=== PATIENT | male | born 1970 | race Caucasian/White ===

== ENCOUNTER → 2017-03-16 | Outpatient (CLI) | payer BC ==
--- NOTE | 2017-03-16 14:30 | MR ---
EXAMINATION TYPE: MR lumbar spine wo con DATE OF EXAM: 03/16/2017 1:43 PM COMPARISON: 01/03/2016 HISTORY: lumbago Multiplanar, MultiSpin echo imaging of the lumbar spine was performed. L1-L2: There is mild disc desiccation. Circumferential disc bulge greatest posteriorly likely effaces the ventral thecal sac. There is no evidence for lateral recess stenosis or central stenosis. Mild b ilateral foraminal encroachment is identified. L2-L3: There is mild disc desiccation. Circumferential disc bulge greatest posteriorly likely effaces the ventral thecal sac. There is no evidence for lateral recess stenosis or central stenosis. Mild b ilateral foraminal encroachment is identified. L3-L4: There is mild to moderate disc desiccation. Circumferential disc bulge greatest posteriorly li emerson effaces the ventral thecal sac. There is no evidence for lateral recess stenosis or central sten osis. Mild bilateral foraminal encroachment is identified. L4-L5: There is mild to moderate disc desiccation. Circumferential disc bulge greatest posteriorly li emerson effaces the ventral thecal sac. There is no evidence for lateral recess stenosis or central sten osis. Mild bilateral foraminal encroachment is identified. L5-S1: Normal disc appearance without desiccation. No herniation, protrusion or disc bulging. No ca nal stenosis is present. Foramina are patent bilaterally. Lumbar segments are intact. No paraspinal masses are identified. Conus medullaris has a normal appe arance. IMPRESSION: 1. Multilevel degenerative disc disease. 2. Multilevel disc bulging with multilevel foraminal encroachment.
== END | disposition home or self-care (01) ==
LOC: RADMRIMAIN 13:10
PROVIDERS: ATTEND Pain Medicine Interventional Pain Medicine
DX: M51.16 Intervertebral disc disorders with radiculopathy, lumbar region (principal)
CPT/HCPCS: 72148

== ENCOUNTER 2019-04-11 06:13 | Emergency (ER) | payer BC ==
[2019-04-11 06:26] VITALS: RESP 18; TEMP 98
[2019-04-11] MEDS ORDERED: METOCLOPRAMIDE 5 MG/ML 2 ML VIAL IVP STA (07:09)
[2019-04-11] MEDS ORDERED: ORPHENADRINE 30 MG/ML 2 ML VIAL IVP STA (07:09)
[2019-04-11] MEDS ORDERED: diphenhydrAMINE 50 MG/ML 1 ML VIAL IVP STA (07:09)
[2019-04-11] MEDS ORDERED: KETOROLAC 30 MG/ML 1 ML VIAL IVP STA (07:09)
[2019-04-11] MEDS ORDERED: SODIUM CHLORIDE 0.9% 500 ML 500 ML IV STA (07:09)
--- NOTE | 2019-04-11 07:14 | ED ---
Headache HPI - General Chief Complaint: Headache Stated Complaint: Headache Time Seen by Provider: 04/11/19 07:03 Source: patient, RN notes reviewed Mode of arrival: ambulatory Limitations: no limitations - History of Present Illness Initial Comments: This a 48-year-old male presents emergency Department chief complaint of right- sided headache. Patient states that it woke him up onto 30 a.m. Patient states it's intermittent sharp shooting pain in the right side of his head. Patient states he has no blurred vision no. Patient states he has some nausea denies any vomiting. Patient denies any blurred vision, double vision, dizziness, chest pain, shortness of breath. Patient states she's had headaches in the past but seems to be different states it seems to be more superficial and has skull. Denies any rashes. Patient no trauma no fevers or chills no neck pain. - Related Data Home Medications Medication Instructions Recorded Confirmed Multivitamins, Thera [Multivitamin 1 tab PO DAILY 04/11/19 04/11/19 (formulary)] traMADol HCL [Ultram] 100 mg PO TID 04/11/19 04/11/19 Previous Rx's Medication Instructions Recorded Orphenadrine [Norflex] 100 mg PO Q12H #14 tablet.er 04/11/19 carBAMazepine [carBAMazepine ER] 100 mg PO Q12H #14 cap 04/11/19 Allergies Allergy/AdvReac Type Severity Reaction Status Date / Time No Known Allergies Allergy Verified 04/11/19 07:27 Review of Systems ROS Statement: Those systems with pertinent positive or pertinent negative responses have been documented in the HPI. ROS Other: All systems not noted in ROS Statement are negative. Past Medical History Past Medical History: No Reported History History of Any Multi-Drug Resistant Organisms: None Reported Past Surgical History: No Surgical Hx Reported Past Psychological History: No Psychological Hx Reported Smoking Status: Never smoker Past Alcohol Use History: Unable to Obtain Past Drug Use History: None Reported General Exam Limitations: no limitations General appearance: alert, in no apparent distress Head exam: Present: atraumatic, normocephalic, normal inspection Eye exam: Present: normal appearance, PERRL, EOMI. Absent: scleral icterus, conjunctival injection, periorbital swelling ENT exam: Present: normal exam, normal oropharynx, mucous membranes moist, TM's normal bilaterally, normal external ear exam Neck exam: Present: normal inspection, full ROM. Absent: tenderness, meningismus, lymphadenopathy Respiratory exam: Present: normal lung sounds bilaterally. Absent: respiratory distress, wheezes, rales, rhonchi, stridor Cardiovascular Exam: Present: regular rate, normal rhythm, normal heart sounds. Absent: systolic murmur, diastolic murmur, rubs, gallop, clicks GI/Abdominal exam: Present: soft, normal bowel sounds. Absent: distended, tenderness, guarding, rebound, rigid Neurological exam: Present: alert, oriented X3, CN II-XII intact, normal gait, reflexes normal, other ([id number] intact bilaterally without over shooting.). Absent: motor sensory deficit Skin exam: Present: warm, dry, intact, normal color. Absent: rash Course Vital Signs 04/11/19 06:23 Temperature 98.0 F Pulse Rate 98 Respiratory 18 Rate Blood Pressure 154/99 O2 Sat by Pulse 100 Oximetry - Reevaluation(s) Reevaluation #1: 04/11/19 08:59 Patient updated on results and reevaluated. Patient states she feels improved at this time. Medical Decision Making - Medical Decision Making 48-year-old male presented emergency 5 for right-sided headache pain. Patient has CT and labs which is unremarkable. Patient's symptoms are more related to occipital neuralgia. Patient be discharged on Tegretol follow-up neurology for occipital nerve block if persistent symptoms. Patient is neurologically intact. - Lab Data Result diagrams: 04/11/19 07:37 04/11/19 07:37 Lab Results 04/11/19 04/11/19 Range/Units 07:37 07:37 WBC 7.5 (3.8-10.6) k/uL RBC 4.82 (4.30-5.90) m/uL Hgb 16.1 (13.0-17.5) gm/dL Hct 45.2 (39.0-53.0) % MCV 93.9 (80.0-100.0) fL MCH 33.3 (25.0-35.0) pg MCHC 35.5 (31.0-37.0) g/dL RDW 14.2 (11.5-15.5) % Plt Count 224 (150-450) k/uL Neutrophils % 66 % Lymphocytes % 20 % Monocytes % 6 % Eosinophils % 5 % Basophils % 1 % Neutrophils # 4.9 (1.3-7.7) k/uL Lymphocytes # 1.5 (1.0-4.8) k/uL Monocytes # 0.5 (0-1.0) k/uL Eosinophils # 0.4 (0-0.7) k/uL Basophils # 0.0 (0-0.2) k/uL Sodium 140 (137-145) mmol/L Potassium 4.2 (3.5-5.1) mmol/L Chloride 106 (98-107) mmol/L Carbon Dioxide 25 (22-30) mmol/L Anion Gap 9 mmol/L BUN 15 (9-20) mg/dL Creatinine 0.89 (0.66-1.25) mg/dL Est GFR (CKD-EPI)AfAm >90 (>60 ml/min/1.73 sqM) Est GFR (CKD-EPI)NonAf >90 (>60 ml/min/1.73 sqM) Glucose 110 H (74-99) mg/dL Calcium 9.4 (8.4-10.2) mg/dL Total Bilirubin 0.8 (0.2-1.3) mg/dL AST 33 (17-59) U/L ALT 18 L (21-72) U/L Alkaline Phosphatase 68 (38-126) U/L Total Protein 7.7 (6.3-8.2) g/dL Albumin 4.5 (3.5-5.0) g/dL Disposition Clinical Impression: Occipital neuralgia of right side Disposition: HOME SELF-CARE Condition: Stable Instructions (If sedation given, give patient instructions): Acute Headache (ED) Additional Instructions: Please return to the Emergency Department if symptoms worsen or any other concerns. Prescriptions: carBAMazepine [carBAMazepine ER] 100 mg PO Q12H #14 cap Orphenadrine [Norflex] 100 mg PO Q12H #14 tablet.er Is patient prescribed a controlled substance at d/c from ED?: No Referrals: None,Stated [Primary Care Provider] - 1-2 days Connie Galicia MD [Medical Doctor] - 1-2 days Time of Disposition: 09:03
--- NOTE | 2019-04-11 07:28 | CT ---
EXAMINATION TYPE: CT brain wo con DATE OF EXAM: 04/11/2019 COMPARISON: CT brain April 02, 2013 HISTORY: Severe Rt sided JASMINE CT DLP: 1058.4 mGycm. Automated Exposure Control for Dose Reduction was Utilized. TECHNIQUE: CT scan of the head is performed without contrast. FINDINGS: There is no acute intracranial hemorrhage, mass effect, or midline shift identified. The ventricles and sulci are within normal limits in size. Iniguez-white matter differentiation is maintain ed. Moderate mucosal thickening visualized portion of both maxillary sinuses is present. There is muc osal thickening and patchy opacification of ethmoid sinuses bilaterally redemonstrated. There is new dependent opacity in the right sphenoid sinus. IMPRESSION: Worsening acute on chronic paranasal sinus disease.
[2019-04-11 08:00] LABS: Basophils % (A) 1 %; Eosinophils # (A) 0.4 k/uL (0-0.7); Eosinophils % (A) 5 %; HCT 45.2 % (39.0-53.0); HGB 16.1 gm/dL (13.0-17.5); Lymphocytes # (A) 1.5 k/uL (1.0-4.8); Lymphocytes % (A) 20 %; MCH 33.3 pg (25.0-35.0); MCHC 35.5 g/dL (31.0-37.0); MCV 93.9 fL (80.0-100.0); Mean Platelet Volume 7.2; Monocytes # (A) 0.5 k/uL (0-1.0); Monocytes % (A) 6 %; Neutrophils # (A) 4.9 k/uL (1.3-7.7); Neutrophils % (A) 66 %; Platelet Count 224 k/uL (150-450); RBC 4.82 m/uL (4.30-5.90); RDW 14.2 % (11.5-15.5); WBC 7.5 k/uL (3.8-10.6)
[2019-04-11 08:04] LABS: ALT 18 U/L (21-72); AST 33 U/L (17-59); African American GFR (CKD) >90 (>60 ml/min/1.73 sqM); Albumin 4.5 g/dL (3.5-5.0); Alkaline Phosphatase 68 U/L (38-126); Anion Gap 9 mmol/L; Blood Urea Nitrogen 15 mg/dL (9-20); Calcium 9.4 mg/dL (8.4-10.2); Carbon Dioxide 25 mmol/L (22-30); Chloride 106 mmol/L (98-107); Glucose 110 mg/dL (74-99); Potassium 4.2 mmol/L (3.5-5.1); Sodium 140 mmol/L (137-145); Total Bilirubin 0.8 mg/dL (0.2-1.3); Total Protein 7.7 g/dL (6.3-8.2)
[2019-04-11 09:13] VITALS: BP 133/78; PULSE 73
== END 2019-04-11 09:14 | disposition home or self-care (01) ==
LOC: EC 06:13
DX: M54.81 Occipital neuralgia (principal); Z79.891 Long term (current) use of opiate analgesic
CPT/HCPCS: 36415; 80053; 85025; 70450; 99284; 96374; 96375 ×3; 96361; J1200; J2360; J2765; J1885